=== PATIENT | female | born 2000 | race Caucasian/White ===

== ENCOUNTER 2024-04-17 11:20 | Emergency (ER) | payer OTHER, SELFPAY ==
--- NOTE | 2024-04-17 11:50 | ED.GENADULT ---
HPI - General Adult General Chief complaint: Unspecified Stated complaint: Medication reaction Time Seen by Provider: 04/17/24 11:50 Source: patient Mode of arrival: ambulatory Limitations: no limitations History of Present Illness HPI narrative: patient left her work and drove herself to the emergency room complaining of not feeling well, nausea, drowsiness, lightheadedness, sore low at work, started 2-3 days ago and getting worse after starting sertraline 50 mg once a day in the last 4 days. She denies any fever, chills, nausea, vomiting, chest pain, shortness of breath, headache or abdominal pain patient reports history of anxiety in, her symptom was roughly the same prior to sertraline and got worse after taking sertraline Related Data Allergies Allergy/AdvReac Type Severity Reaction Status Date / Time amoxicillin [From Augmentin] Allergy Intermediate Rash Verified 04/17/24 11:27 clavulanic acid Allergy Intermediate Rash Verified 04/17/24 11:27 [From Augmentin] Penicillins Allergy Rash Verified 04/17/24 11:27 Review of Systems Review of Systems: All systems reviewed & are unremarkable except as noted in HPI and below PMFSH Past Medical History Medical History ADHD Seasonal allergies Family History Family History Mother Blood clot in vein Father Acute myocardial infarction Hypertension Hyperlipidemia Social History Social History Smoking status: Never smoker Alcohol intake: never Substance use: never Do You Feel Safe in your Home?: Yes Lack of Transportation: No Lack of Food: Never True Current Housing: I Have Housing Concerned About Future Housing: No Difficulty Paying Gas/Electric Bills: No Difficulty Paying for Meds: No Currently Unemployed: No Education: High School Diploma/GED Difficulty w/ Childcare or Family Care: No Exam Narrative: General appearance: Well-developed, well-nourished Skin: Normal color Head: Normocephalic, nontraumatic Eyes: Clear conjunctiva ENT: Oropharynx normal, ears normal, nose normal Neck: Supple, nontender Chest and respiratory: Airway patent, no respiratory distress, no accessory muscle use Heart: Regular rate/rhythm Abdomen: Soft, nontender, no organomegaly, quiet bowel sounds Vascular: Normal peripheral pulses, normal capillary refill. Musculoskeletal: Normal range of motion, nontender back Neurologic: Alert and oriented ?3, REVENUE CYCLE CONSULTANT is normal as tested, no gross motor deficit Course Vital Signs Vital signs: Vital Signs Oxygen Delivery Room Air 04/17/24 11:29 Oxygen Delivery Room Air 04/17/24 11:29 Medical Decision Making MDM Narrative Medical decision making narrative: differential diagnosis include anxiety like symptoms, sertraline side effect which can cause dizziness, nausea, drowsiness, decreased appetite and heart arrhythmia. There is no labs or imaging are required at this time. Patient drove herself to the emergency room. My plan to give patient Zac Senior in the ED and discharged on clonazepam 0.25 mg twice a day, 10 tablets and to follow up with her family physician for sertraline replacement. Vital Signs Vital Signs: Vital Signs Oxygen Delivery Room Air 04/17/24 11:29 Oxygen Delivery Room Air 04/17/24 11:29 Discharge Plan Discharge Clinical Impression: Anxiety-like symptoms, Adverse effect of sertraline Patient Disposition: Home, Self-Care Condition: Stable Instructions: Adverse Drug Reaction (ED), Anxiety (ED) Additional Instructions: Return if symptoms are worsening , call your family physician for appointment, take Tylenol as as needed for aches and pain, continue home medications. Stop sertraline, contact your family physician for a replacement Excuse off work tomorrow Prescriptions: New clonazepam 0.25 mg tablet,disintegrating 0.25 mg PO BID Qty: 10 0RF ondansetron 4 mg tablet,disintegrating 4 mg PO Q4H 0 Days Qty: 10 0RF Rx Instructions: 1st dose 1-2 hr before radiation No Action etonogestrel-ethinyl estradiol [NuvaRing] 0.12-0.015 mg/24 hr ring 1 vag ring vaginal .COMPLEX Qty: 3 3RF Rx Instructions: 1 vag ring vaginally for 3 weeks then remove for 1 week. Follow-up/Referrals: Mono,Laura Foster APRN [Primary Care Provider] -
[2024-04-17] MEDS: ONDANSETRON HCL ODT 4 MG TABLET PO (11:58)
[2024-04-17] MEDS: MECLIZINE HCL 25 MG TABLET PO (11:58)
== END 2024-04-17 12:10 | disposition home or self-care (01) ==
PROVIDERS: Emergency Provider Emergency Medicine; PCP Nurse Practitioner Family
DX: F41.9 Anxiety disorder, unspecified (principal); T43.225A Adverse effect of selective serotonin reuptake inhibitors, initial encounter; Z79.899 Other long term (current) drug therapy
CPT/HCPCS: 99283; A9270

== ENCOUNTER 2024-07-18 23:10 | Emergency (ER) | payer OTHER, SELFPAY ==
--- NOTE | ~2024-07-18 | XR_ITS ---
CHEST RADIOGRAPH CLINICAL HISTORY: cough . COMPARISON: None available TECHNIQUE: Single portable view of the chest. FINDINGS The cardiomediastinal silhouette is unremarkable. The lungs are clear. Visualized osseous structures and soft tissues are unremarkable. IMPRESSION: No focal infiltrate or effusion. Reviewed, dictated and finalized at location A. EN DO[employer]
[2024-07-18 23:10] VITALS: BP 138/113; PULSE 95; RESP 16; TEMP 36.5; O2SAT 100
[2024-07-19 00:11] LABS: Strep Group A RT-PCR NOT DETECTED (Negative)
[2024-07-19 00:15] LABS: Influenza A QL RT-PCR Negative (Negative); Influenza B QL RT-PCR Negative (Negative); RSV RNA, RT-PCR Negative (Negative); SARS-CoV-2 RNA PCR Negative (Negative)
--- NOTE | 2024-07-19 00:15 | ED_ITS ---
HPI - URI/Sore Throat General Chief Complaint: Upper Respiratory Infection Stated Complaint: cough Time Seen by Provider: 07/18/24 23:24 Source: patient Mode of arrival: ambulatory Limitations: no limitations History of Present Illness HPI Narrative: Patient is a 23-year-old female with significant past medical history that presents today for URI symptoms. Patient has had a productive cough for last month now. She says medical cough is not gone away. She is describing symptoms possible bronchitis or possible pneumonia. Primary care doctor told her to go into her chest x-ray to look for pneumonia. She denies any fevers or sick contacts. MD elicited complaint: cough Pertinent past history: pneumonia Onset (ago): month(s) Consistency: intermittent Severity: moderate Description of mucous: yellow and green Able to tolerate fluids by mouth: Yes Exacerbating factors: swallowing, exertion and deep breaths Relieving factors: nothing Associated symptoms: headache, rhinorrhea, nasal congestion and sore throat Treatments prior to arrival: none Related Data Allergies Allergy/AdvReac Type Severity Reaction Status Date / Time clavulanic acid (From Allergy Intermediate Rash Verified 07/19/24 00:00 Augmentin) amoxicillin (From Augmentin) Allergy Mild Hives Verified 07/19/24 00:08 Penicillins Allergy Rash Verified 07/19/24 00:00 sertraline AdvReac Mild Anxiety Verified 07/19/24 00:08 Review of Systems Review of Systems: All systems reviewed & are unremarkable except as noted in HPI and below Constitutional: Constitutional: Reports as per HPI Eyes: Eyes: Reports no additional eye complaints ENT: Reports as per HPI, Reports nasal congestion and Reports sore throat Respiratory: Respiratory: Reports as per HPI, Reports chest congestion and Reports cough Gastrointestinal: Gastrointestinal: Reports no additional gastrointestinal complaints Genitourinary: Genitourinary: Reports no additional female genitourinary complaints Musculoskeletal: Musculoskeletal: Reports no additional musculoskeletal complaints Integumentary/Breasts: Skin/Breast: Reports system reviewed and no additional complaints, except as docu Neurologic: Reports system reviewed and no additional complaints, except as documented Psychiatric: Psychiatric: Reports no additional psychiatric complaints Endocrine: Endocrine: Reports no additional endocrine complaints Hematologic/Lymphatic: Hematologic/Lymphatic: Reports no additional hematologic/lymphatic complaints Allergic/Immunologic: Allergic/Immunologic: Reports no additional allergic/immunologic complaints PMFSH Past Medical History Medical History Seasonal allergies ADHD Family History Family History Mother Blood clot in vein Father Acute myocardial infarction Hypertension Hyperlipidemia Social History Social History Smoking status: Never smoker Alcohol intake: never Substance use: never Do You Feel Safe in your Home?: Yes Lack of Transportation: No Lack of Food: Never True Current Housing: I Have Housing Concerned About Future Housing: No Difficulty Paying Gas/Electric Bills: No Difficulty Paying for Meds: No Currently Unemployed: No Education: High School Diploma/GED Difficulty w/ Childcare or Family Care: No Exam Const: General: healthy appearing Nutritional Appearance: well nourished Orientation/consciousness: patient oriented x3 HENMT: Head: normal to inspection Ears: external ears normal Face/Nose/Sinus: Normal external nose present Face and sinus: normal facial exam Mouth: Yes Normal oral and palatal mucosa present Teeth and gingiva: dentition normal Throat: posterior oropharynx normal Eyes: Conjunctivae: conjunctivae normal Pupils: Equal, round and reactive pupils present EOM: EOMs intact bilaterally Direct Ophthalmoscopy: no photophobia Neck: Neck: normal visual inspection Chest: Chest palpation & inspection: normal inspection of the chest Resp: Effort & Inspection: labored and tachypneic Auscultation: crackles and rales Cardio: Rate: regular rate Rhythm: regular rhythm GI: GI Palp: Yes Soft to palpation Back/Spine/Pelvis: Back: no CVA tenderness Skin: General skin exam: normal color Rashes: no rashes Wounds: no wounds Neuro: General: patient oriented x3 Cranial nerves: Yes Nystagmus not present Speech: normal speech Gait exam (Neuro): Normal gait present Extrem: General: normal to inspection Psych: Mental Status: mental status grossly normal Affect: normal affect Attitude: cooperative Course Vital Signs Vital signs: Vital Signs Temperature 97.7 F 07/18/24 23:10 Pulse Rate 95 07/18/24 23:10 Respiratory Rate 16 07/18/24 23:10 Blood Pressure 138/113 H 07/18/24 23:10 Pulse Oximetry 100 07/18/24 23:10 Oxygen Delivery Room Air 07/18/24 23:10 Temperature 97.7 F 07/18/24 23:10 Pulse Rate 95 07/18/24 23:10 Respiratory Rate 16 07/18/24 23:10 Blood Pressure 138/113 H 07/18/24 23:10 Pulse Oximetry 100 07/18/24 23:10 Oxygen Delivery Room Air 07/18/24 23:10 MDM - URI/Sore Throat MDM Narrative Medical decision making narrative: Patient has had chronic cough for over a month now. She said it has been productive of yellowish-greenish sputum. Has not had better is only got worse. She says she is taking OTC medications with no relief. will do a chest x-ray to check for pneumonia also due COVID RSV flu swab and strep swab to test with ease. Will treat appropriately after the results come back. Chest x-ray shows no pneumonia, off that results are negative. Will treat as is the whole URI with doxycycline and Medrol Dosepak. Differential Diagnosis Differential diagnosis: Likely upper respiratory infection, otitis media and bronchitis Medical Records Attestation: I reviewed the patient's medical records. Lab Data Attestation: I reviewed the patient's lab results. Labs: Lab Results 07/18/24 Range/Units 23:34 Influenza A (RT-PCR) Pending Influenza B (RT-PCR) Pending RSV (RT-PCR) Pending SARS-CoV-2 RNA (RT-PCR) Pending Group A Strep (PCR) Not detected (Negative) Imaging Data Attestation: I personally reviewed and interpreted this imaging study as follows: Discharge Plan Discharge Clinical Impression: Upper respiratory infection Patient Disposition: Home, Self-Care Condition: Stable Instructions: Antibiotic Form Patient Language: Lao Prescriptions: New doxycycline hyclate 100 mg tablet 100 mg PO BID Qty: 20 0RF methylprednisolone [Medrol (Darrell)] 4 mg tablets,dose pack See Rx Instructions .ROUTE .COMPLEX Qty: 21 0RF Rx Instructions: orally per package directions No Action clonazepam 0.25 mg tablet,disintegrating 0.25 mg PO BID Qty: 10 0RF ondansetron 4 mg tablet,disintegrating 4 mg PO Q4H 0 Days Qty: 10 0RF Rx Instructions: 1st dose 1-2 hr before radiation etonogestrel-ethinyl estradiol [NuvaRing] 0.12-0.015 mg/24 hr ring 1 vag ring vaginal .COMPLEX Qty: 3 3RF Rx Instructions: 1 vag ring vaginally for 3 weeks then remove for 1 week. Follow-up/Referrals: Mono,Laura Foster APRN [Primary Care Provider] - Time of Disposition: 00:28
[2024-07-19] MEDS: dexAMETHasone SOD PHOS INJ 10 MG/ML 1 ML VIAL IM (00:32)
[2024-07-19] MEDS: DOXYCYCLINE HYCLATE 100 MG TABLET PO (00:32)
[2024-07-19 00:44] VITALS: BP 156/116; PULSE 88; RESP 16; TEMP 36.6; O2SAT 100
--- NOTE | 2024-07-19 00:45 | PC.NURSE ---
ERP aware of pt's blood pressure. No new orders. Encouraged pt to follow up with PCP for hypertension evaluation.
== END 2024-07-19 00:56 | disposition home or self-care (01) ==
PROVIDERS: Emergency Provider Family Medicine; PCP Nurse Practitioner Family
DX: J06.9 Acute upper respiratory infection, unspecified (principal); Z20.822 Contact with and (suspected) exposure to COVID-19
CPT/HCPCS: 71045; 87637; 87651; 96372; 99283; A9270; J1100

== ENCOUNTER 2024-08-06 23:21 | Emergency (ER) | payer OTHER, SELFPAY ==
[2024-08-06 23:21] VITALS: BP 124/93; PULSE 95; RESP 17; TEMP 36.4; O2SAT 100
--- OUTSIDE RECORDS SUMMARY | 2024-08-06 23:23 | XMS_ITS | Referral Summary ---
Author Organization [email or web address] Address [address] [place] [address] Care Team Providers Care Header Machine Operator Name Role Phone Unavailable Primary Care Provider Unavailabl e Source Comments [facility],non-owned Affiliates and Associated Physician Practices is amultiple site organization consisting of ambulatory clinics and hospital sitesin [place], [place], [place] and [place]. This disclosure is being madepursuant to the Care Everywhere program and may not contain all information available regarding this patient. Last updated 18.[email or web address] Allergies Active Allergy Reactions Criticality Noted Date Comments Augmentin Urticaria Medium 04/21/2019 Medications * Be aware that medications may not be up to date on this document. Alwaysverify current medications with the patient. Medication Sig Dispensed Refills Start Date End Date Status amphetamine-dextroamp hetamine XR 24hr (ADDERALL XR) 15 MG capsule Take 15 mg by mouth every morning Active cetirizine (ZYRTEC) 10 MG tablet Take 10 mg by mouth once daily Active etonogestrel-ethinyl estradiol (NUVARING) 0.12-0.015 MG/24HR vaginal ring Insert 1 device into the vagina as directed Remove ring after 3 weeks, followed by 1 week-rest, then insert new ring Active Active Problems Patient Care Coordination No te Formatting of this note migh t be different from the original. 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 (F LUZONE; FLULAVAL; FLUARIX; AFLURIA QUADRIVALENT; 6MO+), 0.5 ML (IIV4) 04/21/2019 Influenza Nasal 06/06/2015,03/14/2014,04/15/2012 MENINGOCOCAL MENINGITIS 03/09/2018,01/09/2013 MENINGOCOCCAL B RECOMBINANT, 2 OR 3 DOSE, IM 04/21/2019 MMR 11/26/2005,10/20/2002 PNEUMOCOCCAL PCV7 CONJ, PEDS 01/22/2003, 04/19/2002,02/13/2002,12/12 POLIO IPV 02/17/2007, 3,02/13/2002,12/12 TDAP (7yrs+) 01/09/2013 VARICELLA 02/12/2009,10/20/2002 Social History Tobacco Use Types Packs/Day Years Used Date Smoking Tobacco: Never Assessed Sex and Gender Information Value Date Recorded Sex Assigned at Not on file Gender Identity Not on file Sexual Orientation Not on file Last Filed Vital Signs Vital Sign Reading Time Taken Comments Blood Pressure 124/70 04/21/2019 2:41 PM CDT Pulse 84 04/21/2019 2:41 PM CDT Temperature 37.5 ??C (99.5 ??F) 04/21/2019 2:41 PM CD T Respiratory Rate 20 04/21/2019 2:41 PM CDT Oxygen Saturation - - Inhaled Oxygen Concentration - - Weight 106.1 kg (234 lb) 04/21/2019 2:41 PM CDT Height 154 cm (5' 0.63 ) 04/21/2019 2:41 PM CDT Body Mass Index 44.76 04/21/2019 2:41 PM CDT Plan of Treatment Not on file Administered Medications
--- OUTSIDE RECORDS SUMMARY | 2024-08-06 23:23 | XMS_ITS | Clinical Summary ---
Author Organization [facility] Address [address] [place] [address] Care Team Providers Care Slp Teacher Name Role Phone Unavailable Primary Care Provider Unavailabl e Source Comments [facility],non-owned Affiliates and Associated Physician Practices is amultiple site organization consisting of ambulatory clinics and hospital sitesin [place], [place], [place] and [place]. This disclosure is being madepursuant to the Care Everywhere program and may not contain all information available regarding this patient. Last updated 18.[facility] Allergies Active Allergy Reactions Criticality Noted Date [...] original. 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 Problem Noted Date Diagnosed Date Mixed hyperlipidemia [...] 02/17/2007, 3,02/13/2002,12/12 TDAP (7yrs+) 01/09/2013 VARICELLA 02/12/2009,10/20/2002 Family History Medical History Relation Name Comments Diabetes - Type 2 Father Hyperlipidemia Father Hypertension Father Other Father anxiety Diabetes - Type 2 Maternal Grandfather Hypertension Maternal Grandfather Thyroid Disease Maternal Grandmother None Known Mother None Known Paternal Grandfather dad was adopted None Known Paternal Grandmother dad was adopted Relation Name Status Comments Father Alive Maternal Grandfather Alive Maternal Grandmother Alive Mother Alive Paternal Grandfather Other Paternal Grandmother Other Social History Tobacco Use Types Packs/Day Years [...] 04/21/2019 2:41 PM CDT Plan of Treatment Health Maintenance Due Date Last Done Comments PAP SMEAR 2001 HIV SCREENING 2016 CHLAMYDIA/GONORRHEA SCREENING 2017 HEPATITIS C SCREENING 10/07/2019 MENINGOCOCCAL (Group B) VACC INE (2 of 2 - Trumenba SCDM 2-dose series) 10/21/2019 04/21/2019 DTAP/TDAP/TD VACCINES (7 - T d or Tdap) 01/09/2023 01/09/2013, 02/17/2007, 04/24/2003, Additional history exists COVID-19 VACCINE (1 - 2023-2 5 season) 2024 INFLUENZA VACCINE (#1) 2024 , 03/22/2017, 03/14/2016, Additional history exists DEPRESSION SCREENING 07/05/2024 ZOSTER VACCINE (1 of 2) 10/12/2051 HEPATITIS B VACCINE Completed 06/22/2002, 2001, 2001 HIB VACCINE Completed 01/22/2003, 04/04, 02/13/2002, Additional history exists PNEUMOCOCCAL VACCINE Completed 01/22/2003, 04/19/2002, 02/13/2002, Additional history exists HPV VACCINE Completed 08/31/2014, 01/02, 01/09/2013 MENINGOCOCCAL VACCINE Completed 03/09/2018, 013
--- OUTSIDE RECORDS SUMMARY | 2024-08-06 23:23 | XMS_ITS | Clinical Summary ---
Author Organization [facility] Address [address] [place] [address]. [place], [place] [id number] [place] [id number] Care Team Providers Care Boring Mill Operator Name Role Phone Crissy Quintanilla MD Unavailable [phone] Corey Negron MD Primary Care Provider [phone] Allergies Active Allergy Reactions Criticality Noted Date Comments Amoxicillin-Pot Clavulanate Unknown,Hives Medium 03/14 Amoxicillin-Pot Clavulanate Rash Low 05/21/20 21 Penicillin G Hives,Itching,Shortn ess of Breath High 07/17/2023 Sertraline Dizziness,Headache,N ausea Only 04/13/2024 Medications Etonogestrel-Eth inyl Estradiol 0.12-0.015 MG/24HR RING Place 1 Device vaginally. 6 Active fexofenadine (POLINA) 180 MG tablet 5 Active benzonatate (TESSALON) 200 MG capsuleIndicatio ns:Acute bronchitis, unspecified organism Take 1 capsule (200 mg total) by mouth 3 (three) times daily as needed for Cough. 30 capsule 5 08/04/19 25 Active Problems Problem Noted Date Diagnosed Date Acute bronchitis, unspecified organism 5 Anxiety and depression 04/27/2024 Class 3 severe obesity due t o excess calories with serious comorbidity and body mass index (BMI) of 60.0 to 69.9 in adult ([facility]) 04/27/2024 ADHD (attention deficit hype ractivity disorder), combined type 05/21/2021 Morbid obesity with BMI of 6 0.0-69.9, adult ([facility]) 05/21/2021 Mixed hyperlipidemia 04/21/2019 Resolved Problems Problem Noted Date Diagnosed Date Resolved Date Adolescent behavior problem 05/21/2021 05/21/2021 Body mass index (BMI) greate r than 95th percentile for age in pediatric patient 05/21/2021 01/28/2024 Sunburn 05/21/2021 05/21/2021 Swallowing pain 05/21/2021 05/21/2021 Closed torus fracture of low er end of left radius 03/14/2013 05/21/2021 Routine or child health check 03/14/2013 05/21/2021 Encounters Date Type Department Care Team Description 07/25/2024 12:00 PM FAMILY SERVICES SPECIALIST Office Visit [facility] [address] [address] Corey Negron MD Anxiety; Depression 07/25/2024 Travel from Last 3 Months Immunizations Name Administration Dates Next Due Dtap (Acel-Immune) 02/17/2007, 3,04/19/2002,02/13,2001 Fluzone (IIV3, Trivalent, 0. 5 ML Prefilled Syringe) 04/27/2024 Fluzone 6 Months+ Quad (0.5 mL Prefilled Syringe) 05/22/2022,05/21/2021 HPV 01/09/2013 HPV4 (Gardasil) 08/31/2014,01/16/2014 Hepatitis A (Havrix [address]) 04/16/2004, 004 Hepatitis B Pediatric 06/22/2002,2001,03/2002 Hib (Omni-Hib) 01/22/2003, 2,02/13/2002,12/12 Influenza (FluMist) 06/06/2015,03/14/2014,2011 Influenza (Generic) 05/04/2006, 5,04/16/2004,05/28,04/24/2003 Influenza Adult (Generic) 04/21/2019,03/22/2017, 03/14/2016 MMR (MMRII) 11/26/2005,10/20/2002 Meningcoccal Group B (Trumen ba)(aka Meningitis) 04/21/2019 Meningococcal (Menactra) 03/09/2018 Meningococcal (Menomune) 01/09/2013 Pneumococcal (Prevnar 7) 01/22/2003,04/04,02/13/2002,12/12 Polio IPV (Ipol) 02/17/2007, 3,02/13/2002,12/12 Tdap (Adacel) 04/27/2024 Tdap (Generic) 01/09/2013 Varicella (Varivax) 02/12/2009,10/20/2002 Family History Medical History Relation Comments Depression Brother Obesity Brother Diabetes Father Hyperlipidemia Father Hypertension Father Obesity Father COPD Maternal Grandfather Diabetes Maternal Grandfather Hypertension Maternal Grandfather Asthma Mother Miscarriages / Stillbirths Mother Relation Status Comments Brother Father Alive Maternal Grandfather Mother Alive Social History Tobacco Use Types Packs/Day Years Used Date Smoking Tobacco: Never Smokeless Tobacco: Never Tobacco Cessation:Counseling Given: Yes Alcohol Use Standard Drinks/Week Comments Never 0 (1 standard drink = 0.6 oz pur e alcohol) PHQ-2 Answer Date Recorded Patient Health Questionnaire-2 Score 0 07/25/2024 Comments No Sex and Gender Information Value Date Recorded Sex Assigned at Female 10/20/2022 10:52 AM CDT Legal Sex Female 7:07 PM CDT Gender Identity Female 10/20/2022 10:52 AM CDT Sexual Orientation Bisexual 10/20/2022 10 :52 AM CDT Last Filed Vital Signs Vital Sign Reading Time Taken Comments Blood Pressure 132/88 07/25/2024 12:29 PM FAMILY SERVICES SPECIALIST Pulse 98 07/25/2024 11:31 AM FAMILY SERVICES SPECIALIST Temperature 36.4 ??C (97.6 ??F) 07/25/2024 1 1:31 AM FAMILY SERVICES SPECIALIST Respiratory Rate 18 07/25/2024 11:3 1 AM FAMILY SERVICES SPECIALIST Oxygen Saturation 98% 07/25/2024 11: 31 AM FAMILY SERVICES SPECIALIST Inhaled Oxygen Concentration - - Weight 162.1 kg (357 lb 6.4 oz) 025 11:31 AM FAMILY SERVICES SPECIALIST Height 154.9 cm (5' 1 ) 04/27/2024 11:4 2 AM CDT Body Mass Index 67.53 04/27/2024 11:42 AM CDT Plan of Treatment Upcoming Encounters Date Type Department Care Team (Late st Contact Info) Description 09/14/2024 8:00 AM CDT Appointment [facility] Respiratory Therapy [facility] [place] [address] [address] Corey Negron MD [address] [place] [address] [place] [phone] 10/16/2024 9:00 AM CDT Laboratory Only [address] [place] [address] Corey Negron MD [address] [place], [place] [address] [address] 10/27/2024 9:00 AM CDT Office [facility] - [address] [place] [address] Corey Negron MD [address] [place] [address] [place] [address] Health Maintenance Due Date Last Done Comments Hepatitis C 10/12/2019 Meningococcal B Vaccine (2 of 2 - Trumenba SCDM 2-dose series) 10/21/2019 04/21/2019 COVID-19 Vaccine ( season) 2024 10/25/2020, 10/04/2020 Chlamydia Screening Females ages 16-24 08/20/2024 08/20/2023 (Patient Reported) Annual Physical 01/27/2025 01/28/2024, 05/05, 05/21/2021 PHQ-2 (Physician Dexter) 07/25/2025 07/25/2024 Cervical Cancer Screening Pap Smear (Age 21 to 29) Every 3 Years 08/20/2026 08/20/2023, 08/20/2023 Cervical Cancer Screening 08/20/2026 DTaP, Tdap and Td Vaccines (8 - Td or Tdap) 04/27/2034 04/27/2024, 01/09/2013, 02/17/2007, Additional history exists Hepatitis B Vaccines Completed 06/22/2002, 2001, 2001 Pneumococcal Vaccine: Pediatrics (0 to 5 Years) and At-Risk Patients (6 to 64 Years) Aged Out 01/22/2003, 04/19/2002, 02/13/2002, Additional history exists No longer eligible based on patient's age to complete this topic HPV Vaccines Completed 08/31/2014, 01/02, 01/09/2013 Meningococcal Vaccine Completed 03/09/2018, 013 Influenza Adult Completed 04/27/2024, 05/05, 05/21/2021, Additional history exists PHQ-2 (Physician Dexter) Completed 07/25/2024 RSV Immunizations Under 20 Months Aged Out No longer eligible based on patient's age to complete this topic Procedures Procedure Name Priority Date/Time Associated Diagnosis Comments OUTSIDE CYTOPATH CERV/VAG IN TERPRET (PAP) 08/20/2023 from Last 3 Months or Most Recently Relevant to Health Maintenance Results * PAP SMEAR WITH HPV (08/20/2023) 08/20/2023 [facility] Scanned SCANNING Final Resu lt from Last 3 Months or Most Recently Relevant to Health Maintenance Insurance FORBES Care Teams Boring Mill Operator Relationship Specialty Start Date End Date Corey Negron MD [address] [facility] [place] [phone] PCP - General FAMILY PRACTICE 03/05/24 Crissy Quintanilla MD [address] [facility] [place] [address] Child and Adolescent Psychiatry 05/21/21
--- OUTSIDE RECORDS SUMMARY | 2024-08-06 23:23 | XMS_ITS | Patient Health Summary ---
Author Organization [facility] Address [address] [place] [address] Care Team Providers Care Store Sales Consultant Name Role Phone Unavailable Primary Care Provider Unavailabl e Note from [facility],non-owned Affiliates and Associated Physician Practices is amultiple site organization consisting of ambulatory clinics and hospital sitesin [place], [place], [place] and [place]. This disclosure is being madepursuant to the Care Everywhere program and may not contain all information available regarding this patient. Last updated 18.[facility] Allergies * Augmentin(Urticaria) -Medium Criticality Medications * Be aware that medications may not be up to date on this document. Alwaysverify current medications with the patient. * amphetamine-dextroamphetamine XR 24hr (ADDERALL XR) 15 MG capsule Take 15 mg by mouth every morning * cetirizine (ZYRTEC) 10 MG tablet Take 10 mg by mouth once daily * etonogestrel-ethinyl estradiol (NUVARING) 0.12-0.015 MG/24HR vaginal ring Insert 1 device into the vagina as directed Remove ring after 3 weeks, followed by 1 week-rest, then insert new ring Active Problems Problem Noted Date Diagnosed Date Mixed hyperlipidemia 04/21/2019 ADHD (attention deficit hype ractivity disorder), combined type Swallowing pain Adolescent behavior problem Sunburn Body mass index (BMI) greate r than 95th percentile for age in pediatric patient Immunizations * DTaP VACCINE IM (6wk-6yrs)(Given 02/17/2007, 04/24/2003, 04/19/2002, 02/13/2002, 2001) * HEP A PEDS 2 DOSE(Given 04/16/2004, 10/16/2003) * HEP B VACCINE, PED/ADOL(Given 06/22/2002, 2001, 2001) * HIB-PRP-T 4 DOSE(Given 01/22/2003, 04/19/2002, 02/13/2002, 2001) * Human Papilloma Virus Vaccine(Given 08/31/2014, 01/16/2014, 01/09/2013) * INFLUENZA VACCINE(Given 03/22/2017, 03/14/2016, 05/04/2006, 04/27/2005, 04/16/2004, 05/28/2003, 04/24/2003) * INFLUENZA VACCINE, QUADR. (FLUZONE; FLULAVAL; FLUARIX; AFLURIA QUADRIVALENT; 6MO+), 0.5 ML (IIV4)(Given 04/21/2019) * Influenza Nasal(Given 06/06/2015, 03/14/2014, 04/15/2012) * MENINGOCOCAL MENINGITIS(Given 03/09/2018, 01/09/2013) * MENINGOCOCCAL B RECOMBINANT, 2 OR 3 DOSE, IM(Given 04/21/2019) * MMR(Given 11/26/2005, 10/20/2002) * PNEUMOCOCCAL PCV7 CONJ, PEDS(Given 01/22/2003, 04/19/2002, 02/13/2002, 2001) * POLIO IPV(Given 02/17/2007, 04/24/2003, 02/13/2002, 2001) * TDAP (7yrs+)(Given 01/09/2013) * VARICELLA(Given 02/12/2009, 10/20/2002) Social History Tobacco Use Types Packs/Day Years [...] Mass Index 44.76 04/21/2019 2:41 PM CDT Procedures * TUBERCULOSIS (PPD) INTRADERMAL(Performed 02/22/2020) Performed for Need for vaccination * LIPID PROFILE+GLUCOSE - POINT OF CARE (AMB)(Performed 04/21/2019) Performed for Lipid screening Results * TUBERCULOSIS (PPD) INTRADERMAL (02/22/2020) 02/22/2020 Sharona Owusu POURER METAL-INSTRUCTOR PILOT IMM-INJ ORDERAB LES * (ABNORMAL) LIPID PROFILE+GLUCOSE - POINT OF CARE (AMB) (04/21/2019 3:06 PM CDT) QC Verified Yes Yes Cholesterol POCT 203(A) 200 mg/dl HDL POCT 69 mg/dL Triglycerides POCT 140(A) 130 mg/dL LDL 106 130 mg/dl Non HDL Cholesterol POCT 134 145 mg/dL Total Cholesterol/HDL Ratio POCT 2.9 6.0 Glucose 77 70 - 126 mg/dL Blood BLOOD SPECIMEN / Unknown 04/21/2019 3:06 PM CDT Reyna Castellano MD LAB - POINT OF CARE ORDERABLES
--- NOTE | 2024-08-06 23:26 | ED.URI ---
HPI - URI/Sore Throat General Chief Complaint: Upper Respiratory Infection Stated Complaint: sore throat Time Seen by Provider: 08/06/24 23:24 Source: patient and family Mode of arrival: ambulatory Limitations: no limitations History of Present Illness HPI Narrative: patient is a 23-year-old female with a sore throat for the past 3 days. She has missed work. She needs a work note. She has history of recurrent tonsillitis /pharyngitis. MD elicited complaint: sore throat and nasal congestion Pertinent past history: other ( Negative) Onset (ago): day(s) (3) Consistency: constant Severity: moderate Pain scale (0-10): 3 Description of mucous: clear Able to tolerate fluids by mouth: Yes Exacerbating factors: nothing Relieving factors: nothing Context: sick contacts and other(s) with similar symptoms Associated symptoms: nasal congestion and sore throat Treatments prior to arrival: none Related Data Allergies Allergy/AdvReac Type Severity Reaction Status Date / Time clavulanic acid (From Allergy Intermediate Rash Verified 08/07/24 00:19 Augmentin) amoxicillin (From Augmentin) Allergy Mild Hives Verified 08/07/24 00:19 Penicillins Allergy Rash Verified 08/07/24 00:19 sertraline AdvReac Mild Anxiety Verified 08/07/24 00:19 Review of Systems Review of Systems: All systems reviewed & are unremarkable except as noted in HPI and below Constitutional: Constitutional: Reports no additional constitutional complaints Eyes: Eyes: Reports no additional eye complaints ENT: Reports system reviewed and no additional complaints, except as documented Cardiovascular: Cardiovascular: Reports no additional cardiovascular complaints Respiratory: Respiratory: Reports no additional respiratory complaints Gastrointestinal: Gastrointestinal: Reports no additional gastrointestinal complaints Genitourinary: Genitourinary: Reports no additional female genitourinary complaints Musculoskeletal: Musculoskeletal: Reports no additional musculoskeletal complaints Integumentary/Breasts: Skin/Breast: Reports system reviewed and no additional complaints, except as docu Neurologic: Reports system reviewed and no additional complaints, except as documented Psychiatric: Psychiatric: Reports no additional psychiatric complaints Endocrine: Endocrine: Reports no additional endocrine complaints Hematologic/Lymphatic: Hematologic/Lymphatic: Reports no additional hematologic/lymphatic complaints Allergic/Immunologic: Allergic/Immunologic: Reports no additional allergic/immunologic complaints PMFSH Past Medical History Medical History Seasonal allergies ADHD Family History Family History Mother Blood clot in vein Father Acute myocardial infarction Hypertension Hyperlipidemia Social History Social History Smoking status: Never smoker Alcohol intake: never Substance use: never Do You Feel Safe in your Home?: Yes Lack of Transportation: No Lack of Food: Never True Current Housing: I Have Housing Concerned About Future Housing: No Difficulty Paying Gas/Electric Bills: No Difficulty Paying for Meds: No Currently Unemployed: No Education: High School Diploma/GED Difficulty w/ Childcare or Family Care: No Exam Const: General: healthy appearing Nutritional Appearance: well nourished Orientation/consciousness: patient oriented x3 HENMT: Head: normal to inspection Ears: external ears normal Face/Nose/Sinus: Normal external nose present Other: posterior oropharynx has 2+ to 3+ enlarged tonsils with crypts and questionable pus with erythema Eyes: Conjunctivae: conjunctivae normal Pupils: Equal, round and reactive pupils present EOM: EOMs intact bilaterally Neck: Neck: normal visual inspection Chest: Chest palpation & inspection: normal inspection of the chest Resp: Effort & Inspection: normal respiratory effort and not labored Auscultation: clear to auscultation bilaterally and no crackles Cardio: Rate: regular rate Rhythm: regular rhythm Heart sounds: no murmurs GI: Inspection: non-distended GI Palp: Yes Soft to palpation and No Tenderness to palpation present (GI) Auscultation: normal bowel sounds : General: Yes bladder normal to palpation Back/Spine/Pelvis: Back: no CVA tenderness Skin: General skin exam: normal color Rashes: no rashes Neuro: General: patient oriented x3 Cranial nerves: Yes Nystagmus not present Speech: normal speech Extrem: General: normal to inspection Psych: Mental Status: mental status grossly normal Affect: normal affect Course Vital Signs Vital signs: Vital Signs Temperature 36.4 C 08/06/24 23:21 Pulse Rate 95 08/06/24 23:21 Respiratory Rate 17 08/06/24 23:21 Blood Pressure 124/93 H 08/06/24 23:21 Pulse Oximetry 100 08/06/24 23:21 Oxygen Delivery Room Air 08/06/24 23:21 Temperature 36.4 C 08/07/24 02:01 Pulse Rate 93 08/07/24 02:01 Respiratory Rate 18 08/07/24 02:01 Blood Pressure 130/60 08/07/24 02:01 Pulse Oximetry 97 08/07/24 02:01 Oxygen Delivery Room Air 08/07/24 02:01 MDM - URI/Sore Throat MDM Narrative Medical decision making narrative: patient is a 23-year-old female with a sore throat. We will do a COVID panel and strep test. Lab Data Attestation: I reviewed the patient's lab results. Labs: Lab Results 08/06/24 Range/Units 23:24 Influenza A (RT-PCR) Negative (Negative) Influenza B (RT-PCR) Negative (Negative) RSV (RT-PCR) Negative (Negative) SARS-CoV-2 RNA (RT-PCR) Negative (Negative) Group A Strep (PCR) Not detected (Negative) Examination shows more like strep pattern but test was negative so we will proceed with treatment Discharge Plan Discharge Clinical Impression: Pharyngitis Qualifiers: Pharyngitis/tonsillitis etiology: unspecified etiology Qualified Code(s): J02.9 - Acute pharyngitis, unspecified Patient Disposition: Home, Self-Care Condition: Stable Instructions: Pharyngitis (ED) Patient Language: Barbadian Prescriptions: New prednisone 20 mg tablet 40 mg PO DAILY 2 Days Qty: 4 0RF azithromycin 250 mg tablet See Rx Instructions .ROUTE .COMPLEX Qty: 6 0RF Rx Instructions: For 250 mg dose pack: take 500 mg today (day 1), then 250 mg for 4 days (days 2-5) No Action clonazepam 0.25 mg tablet,disintegrating 0.25 mg PO BID Qty: 10 0RF ondansetron 4 mg tablet,disintegrating 4 mg PO Q4H 0 Days Qty: 10 0RF Rx Instructions: 1st dose 1-2 hr before radiation doxycycline hyclate 100 mg tablet 100 mg PO BID Qty: 20 0RF methylprednisolone [Medrol (Darrell)] 4 mg tablets,dose pack See Rx Instructions .ROUTE .COMPLEX Qty: 21 0RF Rx Instructions: orally per package directions etonogestrel-ethinyl estradiol [NuvaRing] 0.12-0.015 mg/24 hr ring 1 vag ring vaginal .COMPLEX Qty: 3 3RF Rx Instructions: 1 vag ring vaginally for 3 weeks then remove for 1 week. Follow-up/Referrals: Mono,Laura Foster APRN [Primary Care Provider] - Stand Alone Forms: Work/School Release IP Time of Disposition: 01:40
[2024-08-06 23:59] LABS: Strep Group A RT-PCR NOT DETECTED (Negative)
--- OUTSIDE RECORDS SUMMARY | 2024-08-07 00:06 | XMS_ITS | Clinical Summary ---
Author Organization [facility] [employer] Address [address] [place] [address] Care Team Providers Care Vegetable Farmer Name Role Phone Unavailable Primary Care Provider Unavailabl e Source Comments [facility],non-owned Affiliates and Associated Physician Practices is amultiple site organization consisting of ambulatory clinics and hospital sitesin [place], [place], [place] and [place]. This disclosure is being madepursuant to the Care Everywhere program and may not contain all information available regarding this patient. Last updated 18.[facility] [employer] Allergies Active Allergy Reactions Criticality Noted Date [...] original. Pt going to moms doctor and TONG CARRIER Problem Noted Date Diagnosed Date Mixed hyperlipidemia [...]
--- OUTSIDE RECORDS SUMMARY | 2024-08-07 00:06 | XMS_ITS | Patient Health Summary ---
Author Organization [facility] Address [address] [place] [address] Care Team Providers Care Jack Frame Tender Name Role Phone Unavailable Primary Care Provider Unavailabl e Note from [facility],non-owned Affiliates and Associated Physician Practices is amultiple site organization consisting of ambulatory clinics and hospital sitesin [place], [place], [place] and [place]. This disclosure is being madepursuant to the Care Everywhere program and may not contain all information available regarding this patient. Last updated 18.[facility] Allergies * Augmentin(Urticaria) -Medium Criticality Medications * [...] TUBERCULOSIS (PPD) INTRADERMAL (02/22/2020) 02/22/2020 Sharona Owusu SHADOWGRAPH OPERATOR-SEMICONDUCTOR PACKAGES PLATEMAKER IMM-INJ ORDERAB LES * (ABNORMAL) LIPID PROFILE+GLUCOSE [...]
--- OUTSIDE RECORDS SUMMARY | 2024-08-07 00:06 | XMS_ITS | Referral Summary ---
Author Organization [facility] [employer] Address [address] [place] [address] Care Team Providers Care Embedded Systems Designer Name Role Phone Unavailable Primary Care Provider Unavailabl e Source Comments [facility],non-owned Affiliates and Associated Physician Practices is amultiple site organization consisting of ambulatory clinics and hospital sitesin [place], [place], [place] and [place]. This disclosure is being madepursuant to the Care Everywhere program and may not contain all information available regarding this patient. Last updated 18.[facility] [employer] Allergies Active Allergy Reactions Criticality Noted Date [...] original. Pt going to moms doctor and BODY ROLLING MACHINE TENDER Problem Noted Date Diagnosed Date Mixed hyperlipidemia [...]
[2024-08-07 00:13] LABS: SARS-CoV-2 RNA PCR Negative (Negative)
[2024-08-07 00:15] LABS: Influenza A QL RT-PCR Negative (Negative); Influenza B QL RT-PCR Negative (Negative); RSV RNA, RT-PCR Negative (Negative)
--- NOTE | 2024-08-07 01:45 | PC.NURSE ---
ERP aware of pt's blood pressure. No new orders.
[2024-08-07] MEDS: AZITHROMYCIN 250 MG TABLET 500 MG PO (01:52)
[2024-08-07] MEDS: predniSONE 20 MG TABLET 40 MG PO (01:52)
[2024-08-07 02:01] VITALS: BP 130/60; PULSE 93; RESP 18; TEMP 36.4; O2SAT 97
== END 2024-08-07 02:27 | disposition home or self-care (01) ==
PROVIDERS: Emergency Provider Emergency Medicine; PCP Nurse Practitioner Family
DX: J02.9 Acute pharyngitis, unspecified (principal); Z20.822 Contact with and (suspected) exposure to COVID-19
CPT/HCPCS: 87637; 87651; 99283; A9270; J7512

== ENCOUNTER 2025-05-02 08:50 | Outpatient (CLI) | payer OTHER, SELFPAY ==
--- OUTSIDE RECORDS SUMMARY | 2025-05-02 09:26 | XMS_ITS | Clinical Summary ---
Author Organization [facility] [employer] Address [address] [place] [address] Care Team Providers Care Hearing Aide Technician Name Role Phone Unavailable Primary Care Provider Unavailabl e Source Comments [facility],non-owned Affiliates and Associated Physician Practices is amultiple site organization consisting of ambulatory clinics and hospital sitesin [place], [place], [place] and [place]. This disclosure is being madepursuant to the Care Everywhere program and may not contain all information available regarding this patient. Last updated 18.[facility] [employer] Allergies Active Allergy Reactions Criticality Noted Date Comments Augmentin Urticaria Medium 04/21/2019 Medications * Be aware that medications may not be up to date on this document. Alwaysverify current medications with the patient. amphetamine-dex troamphetamine XR 24hr (ADDERALL XR) 15 MG capsule Take 15 mg by mouth every morning Active cetirizine (ZYRTEC) 10 MG tablet Take 10 mg by mouth once daily Active etonogestrel-et hinyl estradiol (NUVARING) 0.12-0.015 MG/24HR vaginal ring Insert 1 device into the vagina as directed Remove ring after 3 weeks, followed by 1 week-rest, then insert new ring Active Active Problems Patient Care Coordination No te Formatting of this note migh t be different from the original. Pt going to moms doctor and CLOTH DYE RANGE OPERATOR Problem Noted Date Diagnosed Date Mixed hyperlipidemia 04/21/2019 ADHD (attention deficit hype ractivity disorder), combined type Swallowing pain Adolescent behavior problem Sunburn Body mass index (BMI) greate r than 95th percentile for age in pediatric patient Immunizations Immunization Administration Dates Next Due DTaP VACCINE IM [...] Years Used Date Smoking Tobacco: Never Assessed Comments Unknown Sex and Gender Information Value Date Recorded Sex Assigned at Not on file Legal Sex Female 9:06 AM CDT Gender Identity Not on file Sexual Orientation Not on file Last Filed Vital Signs Vital Sign Reading Time Taken Comments Blood Pressure 124/70 04/21/2019 2:41 PM CDT Pulse 84 04/21/2019 2:41 PM CDT Temperature 37.5 C (99.5 F) 04/21/2019 2:41 PM CDT Respiratory Rate 20 04/21/2019 2:41 PM CDT Oxygen Saturation - - Inhaled Oxygen Concentration - - Weight 106.1 kg (234 lb) 04/21/2019 2:41 PM CDT Height 154 cm (5' 0.63) 04/21/2019 2:41 PM CDT Body Mass Index 44.76 04/21/2019 2:41 PM CDT Plan of Treatment Health Maintenance Due Date Last Done Comments HIV SCREENING 2016 CHLAMYDIA/GONORRHEA SCREENING 2017 HEPATITIS C SCREENING 10/07/2019 MENINGOCOCCAL (Group B) VACC INE SHARED DECISION-MAKING (2 of 2 - Brigid SCDM 2-dose series) 10/21/2019 04/21/2019 DTAP/TDAP/TD VACCINES (7 - T d or Tdap) 01/09/2023 01/09/2013, 02/17/2007, 04/24/2003, Additional history exists DEPRESSION SCREENING 07/05/2024 COVID-19 VACCINE (1 - 2023-2 5 season) 2025 INFLUENZA VACCINE (#1) 2025 9, 03/22/2017, 03/14/2016, Additional history exists ZOSTER VACCINE (1 of 2) 10/12/2051 HEPATITIS B VACCINE Completed 06/22/2002, 2001, 2001 HIB VACCINE Completed 01/22/2003, 04/04, 02/13/2002, Additional history exists PNEUMOCOCCAL VACCINE Completed 01/22/2003, 04/19/2002, 02/13/2002, Additional history exists HPV VACCINE Completed 08/31/2014, 01/02, 01/09/2013 MENINGOCOCCAL GROUPS A/C/Y/W VACCINE Completed 03/09/2018, 01/09/2013 Insurance
[2025-05-02 09:47] LABS: Hematocrit 37.5 % (37.0-47.0); Hemoglobin 12.1 g/dL (12.0-15.0); Immature Granulocyte Percent A 0.2 % (0-0.5); Lymphocytes Absolute Auto 3.33 K/mm3 (0.9-3.2); Mean Corpuscular HGB Conc 32.3 g/dl (32-36); Mean Corpuscular Hemoglobin 29.3 pg (26-34); Mean Corpuscular Volume 90.8 fl (80-100); Nucleated Red Blood Cells Absolute Auto 0.000 K/mm3 (0.0-0.012); Nucleated Red Blood Cells Perc 0.0 % (0.0-0.2); Platelet Count Result 263 k/mm3 (150-375); Red Blood Count 4.13 M/mm3 (4.2-5.4); White Blood Count 8.5 K/mm3 (4.5-10.0)
[2025-05-02 10:07] LABS: Alanine Aminotransferase 28 U/L (6-35); Albumin Level 3.9 g/dL (3.5-5.1); Alkaline Phosphatase 130 U/L (38-126); Anion Gap 7 mmol/L (4-12); Aspartate Amino Transferase 30 U/L (14-36); Bilirubin,Total 0.3 mg/dL (0.2-1.3); Blood Urea Nitrogen 18 mg/dL (7-17); Calcium 9.0 mg/dL (8.4-10.2); Carbon Dioxide 24 mmol/L (22-30); Chloride 106 mmol/L (98-107); Estimated Glomerular Filt Rate > 60; Glucose 93 mg/dL (65-110); Potassium 4.3 mmol/L (3.4-5.0); Sodium 137 mmol/L (137-145); Total Protein 7.2 g/dL (6.3-8.2)
[2025-05-02 10:15] LABS: Hemoglobin A1C 4.7 % (<5.7)
[2025-05-02 10:23] LABS: Beta HCG Quantitative < 2.39 mIU/ML
[2025-05-02 10:39] LABS: Thyroid Stimulating Hormone Reflex 5.330 uIU/mL (0.465-4.68)
[2025-05-02 11:17] LABS: Free T4 Free Thyroxine Reflex 0.99 ng/dL (0.78-2.19)
[2025-05-02 12:40] LABS: Total Triiodothyronine (T3) 1.70 NG/ML (0.82-1.58)
[2025-05-03 07:09] LABS: FSH 10.6 mIU/mL (.); LH 5.4 mIU/mL (.)
== END 2025-05-02 08:51 | disposition home or self-care (01) ==
PROVIDERS: Visit Provider Nurse Practitioner Obstetrics & Gynecology
DX: N93.9 Abnormal uterine and vaginal bleeding, unspecified (principal)
CPT/HCPCS: 36415; 80053; 82306; 83001; 83002; 83036; 83525; 84144; 84439; 84443; 84480; 84702; 85025

== ENCOUNTER 2025-05-08 09:02 | Outpatient (CLI) | payer OTHER, SELFPAY ==
--- NOTE | ~2025-05-08 | US_ITS ---
EXAMINATION: US pelvic complete w TV INDICATION: N93.9 - Abnormal uterine and vaginal bleeding, unspecified TECHNIQUE: Multiple transabdominal and transvaginal sonographic images of the pelvis were obtained. COMPARISON: None. FINDINGS: Uterus: The uterus appears normal in size, shape, and position. The endometrium appears normal, with a thickness of 4 mm. Right Ovary: The right ovary appears normal. Vascular flow is present. Left Ovary: The left ovary appears normal. It Contains a dominant follicle. Vascular flow is present. There is no free fluid in the pelvis. IMPRESSION: Normal pelvic ultrasound. Reviewed, dictated and finalized at location A. ARCHITECT IMPRESSION: Normal pelvic ultrasound.
== END 2025-05-08 09:03 | disposition home or self-care (01) ==
LOC: MICIMG 09:03
PROVIDERS: PCP Nurse Practitioner Obstetrics & Gynecology; Visit Provider Nurse Practitioner Obstetrics & Gynecology
DX: N93.9 Abnormal uterine and vaginal bleeding, unspecified (principal)
CPT/HCPCS: 76830; 76856

== ENCOUNTER 2025-06-06 10:57 | Outpatient (CLI) | payer OTHER, SELFPAY ==
[2025-06-06 12:14] LABS: Thyroid Stimulating Hormone Reflex 4.830 uIU/mL (0.465-4.68)
--- OUTSIDE RECORDS SUMMARY | 2025-06-06 12:34 | XMS_ITS | Clinical Summary ---
Author Organization [facility] Address [address] [place] [address] Care Team Providers Care Outpatient Interviewing Clerk Name Role Phone Unavailable Primary Care Provider Unavailabl e Source Comments [facility],non-owned Affiliates and Associated Physician Practices is amultiple site organization consisting of ambulatory clinics and hospital sitesin [place], [place], [place] and [place]. This disclosure is being madepursuant to the Care Everywhere program and may not contain all information available regarding this patient. Last updated 18.[facility] Allergies Active Allergy Reactions Criticality Noted Date [...] original. Pt going to moms doctor and [employer] Problem Noted Date Diagnosed Date Mixed hyperlipidemia [...] DEPRESSION SCREENING 07/05/2024 COVID-19 VACCINE (1 - 2024-2 6 season) 2025 INFLUENZA VACCINE (#1) 2025 9, [...]
--- OUTSIDE RECORDS SUMMARY | 2025-06-06 12:34 | XMS_ITS | Clinical Summary ---
Author Organization [facility] Address [facility] [place] [address] Care Team Providers Care Securities Adviser Name Role Phone Crissy Quintanilla MD Unavailable [phone] Corey Negron MD Primary Care Provider [phone] Allergies Active Allergy Reactions Criticality Noted Date Comments Amoxicillin-Pot Clavulanate Unknown,Hives Medium 03/14 Amoxicillin-Pot Clavulanate Rash Low 05/21/20 21 Penicillin G Hives,Itching,Shortn ess of Breath High 07/17/2023 Sertraline Dizziness,Headache,N ausea Only 04/13/2024 Medications Etonogestrel-Eth inyl Estradiol 0.12-0.015 MG/24HR RING Place 1 Device vaginally. 12/09/2015 Active fexofenadine (POLINA) 180 MG tablet 02/10/2015 Active Active Problems Problem Noted Date Diagnosed Date Manic behavior 10/27/2024 Normocytic anemia 10/17/2024 Chronic pain of both knees 08/23/2024 Acute bronchitis, unspecified organism Anxiety and depression 04/27/2024 Class 3 severe obesity due t o excess calories with serious comorbidity and body mass index (BMI) of 60.0 to 69.9 in adult 04/27/2024 ADHD (attention deficit hype ractivity disorder), combined type 05/21/2021 Morbid obesity with BMI of 60.0-69.9, adult 05/05 Mixed hyperlipidemia 04/21/2019 Resolved Problems Problem Noted Date Diagnosed Date Resolved Date Adolescent behavior problem 05/21/2021 05/21/2021 Body mass index (BMI) greate r than 95th percentile for age in pediatric patient 05/21/2021 01/28/2024 Sunburn 05/21/2021 05/21/2021 Swallowing pain 05/21/2021 05/21/2021 Closed torus fracture of low er end of left radius 03/14/2013 05/21/2021 Routine infant or child health check 03/14/2013 05/21/2021 Immunizations Immunization Administration Dates Next Due Dtap (Acel-Immune) 02/17/2007, [...] 11/26/2005,10/20/2002 Meningcoccal Group B (Trumen ba)(aka Meningitis) 08/23/2024,04/21/2019 Meningococcal (Menactra) 03/09/2018 Meningococcal (Menomune) 01/09/2013 PFIZER COVID-19 (12+) MRNA, LNP-S, PF, PEDRO-SUCROSE, 30 MCG/0.3 ML (COMIRNATY) 08/23/2024 Pneumococcal (Prevnar 7) 01/22/2003,04/04,02/13/2002,12/12 Polio IPV (Ipol) [...] Date Recorded Patient Health Questionnaire-2 Score 0 10/27/2024 Hunger Vital Sign Answer Date Recorded Within the past 12 months, y ou worried that your food would run out before you got the money to buy more. Never true 11/10/19 25 Within the past 12 months, t he food you bought just didn't last and you didn't have money to get more. Never true 11/09/2024 PRAPARE - Transportation Answer Date Re corded In the past 12 months, has l ack of transportation kept you from medical appointments or from getting medications? No 02/2025 In the past 12 months, has l ack of transportation kept you from meetings, work, or from getting things needed for daily living? No 11/09/2024 Comments No Sex and Gender Information Value Date Recorded Sex Assigned at Female 10/20/2022 10:52 AM CDT Legal Sex Female 7:07 PM CDT Gender Identity Female 10/20/2022 10:52 AM CDT Sexual Orientation Bisexual 10/20/2022 10 :52 AM CDT Last Filed Vital Signs Vital Sign Reading Time Taken Comments Blood Pressure 128/80 10/27/2024 8:54 AM CDT Pulse 84 10/27/2024 8:54 AM CDT Temperature 36.5 C (97.7 F) 10/27/2024 8:54 AM CDT Respiratory Rate 18 10/27/2024 8:54 AM CDT Oxygen Saturation 100% 10/27/2024 8:54 AM CDT Inhaled Oxygen Concentration - - Weight 162.8 kg (358 lb 14.4 oz) 10/27/2024 8:54 AM CDT Height 154.9 cm (5' 1) 04/27/2024 11:4 2 AM CDT Body Mass Index 67.81 04/27/2024 11:42 AM CDT Plan of Treatment Health Maintenance Due Date Last Done Comments Chlamydia Screening Females ages 16-24 08/20/2024 08/20/2023 (Patient Reported) Annual Physical 01/27/2025 01/28/2024, 05/05, 05/21/2021 COVID-19 Vaccine ( season) 2025 08/23/2024, 10/25/2020, 10/04/2020 Influenza Adult (#1) 2025 04/27/2024, 05/22/2022, 05/21/2021, Additional history exists Cervical Cancer Screening Pap Smear (Age 21 to 29) Every 3 Years 08/20/2026 08/20/2023, 08/20/2023 Cervical Cancer Screening 08/20/2026 DTaP, Tdap and Td Vaccines (8 - Td or Tdap) 04/27/2034 04/27/2024, 01/09/2013, 02/17/2007, Additional history exists Hepatitis B Vaccines Completed 06/22/2002, 2001, 2001 Pneumococcal Vaccine: Pediatrics (0 to 5 Years) and At-Risk Patients (6 to 49 Years) Aged Out 01/22/2003, 04/19/2002, 02/13/2002, Additional history exists No longer eligible based on patient's age to complete this topic Hepatitis A Vaccines Completed 04/16/2004, 10/16/19 04 HPV Vaccines Completed 08/31/2014, 01/02, 01/09/2013 Meningococcal Vaccine Completed 03/09/2018, 013 Meningococcal B Vaccine Completed 08/23/2024, 04/21 Hepatitis C Completed 10/16/2024 PHQ-2 (Physician Elem) Completed 10/27/2024 RSV Immunizations Under 20 Months Aged Out No longer eligible based on patient's age to complete this topic Procedures Procedure Name Priority Date/Time Associated Diagnosis Comments HEPATITIS C ANTIBODY Routine 10/16/2024 8:51 AM CDT Encounter for hepatitis C screening test for low risk patient OUTSIDE CYTOPATH CERV/VAG INTERPRET (PAP) 08/20/2023 from Last 3 Months or Most Recently Relevant to Health Maintenance Results * HEPATITIS C ANTIBODY ([facility] ONLY) (10/16/2024 8:51 AM CDT) HEPATITIS C AB NON-REACTI VE NON-REACT LIANE 10/16/2024 7:12 PM CDT [facility] Comment: ANTIBODIES TO HCV NOT DETECTED. DOES NOT EXCLUDE THE POSSIBILITY OF EXPOSURE TO HCV. 10/16/2024 8:51 AM CDT Corey Negron MD LABORATORY Final Result [facility] [address] [place] [address], [id number] * PAP SMEAR WITH HPV (08/20/2023) 08/20/2023 [facility] Scanned SCANNING Final Resu lt from Last 3 Months or Most Recently Relevant to Health Maintenance Insurance MEDICAID Care Teams Securities Adviser Relationship Specialty Start Date End Date Corey Negron MD [address] [place] [id number] PCP - General FAMILY PRACTICE 03/05/24 Crissy Quintanilla MD [address] [facility] [place] [address] Child and Adolescent Psychiatry 05/21/21
[2025-06-06 14:41] LABS: Free T4 Free Thyroxine Reflex 0.77 ng/dL (0.78-2.19)
== END 2025-06-06 10:58 | disposition home or self-care (01) ==
LOC: ANHLAB 10:58
PROVIDERS: Visit Provider Nurse Practitioner Obstetrics & Gynecology
DX: N93.9 Abnormal uterine and vaginal bleeding, unspecified (principal)
CPT/HCPCS: 36415; 83525; 84439; 84443; 84702